=== PATIENT | male | born 1965 | race Caucasian/White ===

== ENCOUNTER 2020-04-06 13:51 | Inpatient (IN) | payer OTHER ==
[~2020-04-06] VITALS: Ht 185.4 cm; Wt 128.7 kg
[2020-04-06] MEDS ORDERED: ONDANSETRON HCL 4 MG/2 ML VIAL IVP ONE (14:30)
[2020-04-06] MEDS ORDERED: SODIUM CHLORIDE 0.9% 1,000 ML IV ONE (14:30)
[2020-04-06 14:40] LABS: COVID AG,FIA SOURCE NASOPHARYNGEAL
[2020-04-06 14:51] LABS: BASOPHILS % (AUTO) 0.3 % (0.0-2.0); EOSINOPHILS % (AUTO) 0 % (1.0-6.0); HEMATOCRIT 44.9 % (41-53); HEMOGLOBIN 15.2 g/dL (13.5-17.5); LYMPHOCYTES # (AUTO) 1.2 K/uL (1.0-4.8); LYMPHOCYTES % (AUTO) 11.3 % (22.0-44.0); MEAN CORPUSCULAR HEMOGLOBIN 29.7 pg (26.0-34.0); MEAN CORPUSCULAR HGB CONC 33.8 G/dL (31.0-37.0); MEAN CORPUSCULAR VOLUME 88 fL (80-100); MONOCYTES # (AUTO) 0.5 K/uL (0.1-1.0); MONOCYTES % (AUTO) 4.8 % (2.0-9.0); NEUTROPHILS # (AUTO) 8.7 K/uL (1.8-7.7); NEUTROPHILS % (AUTO) 83.6 % (40.0-70.0); PLATELET COUNT (AUTO) 327 K/uL (150-450); RED BLOOD CELL COUNT(AUTO) 5.11 MIL/uL (4.50-5.90); RED CELL DISTRIBUTION WIDTH 13.7 % (11.5-14.5)
[2020-04-06 15:10] LABS: ANION GAP 9 mmol/L (8-16); CARBON DIOXIDE 27 mmol/L (22-29); CHLORIDE 103 mmol/L (98-107); CREATININE 1.22 mg/dL (0.60-1.30); GLUCOSE,RANDOM 237 mg/dL (70-110); POTASSIUM 3.2 mmol/L (3.5-5.1); SODIUM SERUM 139 mmol/L (136-145); UREA NITROGEN, BLOOD 18 mg/dL (7-18)
[2020-04-06 15:11] LABS: CALCIUM, TOTAL 9.7 mg/dL (8.8-10.5); GLOMERULAR FILTR. RATE CALC > 60 mL/min (>60)
[2020-04-06 15:16] LABS: ALANINE AMINOTRANSFERASE 35 U/L (12-78); ALKALINE PHOSPHATASE 88 U/L (46-116); ASPARTATE AMINOTRANSFERASE 19 U/L (15-37); BILIRUBIN,TOTAL 0.5 mg/dL (0.1-1.0); TOTAL PROTEIN, SERUM 8.4 g/dL (6.4-8.2)
[2020-04-06] MEDS ORDERED: CloNIDine 0.1 MG/24 HOUR PATCH TD ONE (15:45)
[2020-04-06] MEDS ORDERED: POTASSIUM CHLORIDE 20 MEQ ER TABLET PO ONE (15:45)
[2020-04-06 16:23] VITALS: BP 167/127
[2020-04-06] MEDS ORDERED: LORazepam 2 MG/ML VIAL IVP PRN (16:30)
[2020-04-06] MEDS ORDERED: MAG HYDROX/AL HYDROX/SIMETH ES 30 ML SUSPENSION UDCUP PO PRN (16:30)
[2020-04-06] MEDS ORDERED: PETROLATUM,WHITE 28 GM JELLY TP PRN (16:30)
[2020-04-06] MEDS ORDERED: LOPERAMIDE HCL 2 MG CAPSULE PO PRN ×2 (16:30)
[2020-04-06] MEDS ORDERED: ACETAMINOPHEN/CODEINE 300-15 MG TABLET PO PRN (16:30)
[2020-04-06] MEDS ORDERED: METOCLOPRAMIDE HCL 5 MG/ML 2 ML VIAL IVP PRN (16:30)
[2020-04-06] MEDS ORDERED: DICYCLOMINE HCL 10 MG CAPSULE PO PRN (16:30)
[2020-04-06] MEDS ORDERED: ALBUTEROL SULFATE HFA 90 MCG/PUFF 8 GM INHALER IH PRN (16:30)
[2020-04-06] MEDS ORDERED: IBUPROFEN 400 MG TABLET PO PRN (16:30)
[2020-04-06] MEDS ORDERED: MAGNESIUM HYDROXIDE SUSPENSION 30 ML UDCUP PO PRN (16:30)
[2020-04-06] MEDS ORDERED: GuaiFENesin/D-METHORPHAN [SUGAR-FREE] 200-20MG/10 ML SYRUP UDCUP PO PRN (16:30)
[2020-04-06] MEDS ORDERED: NICOTINE 14 MG/24 HOUR PATCH TD PRN (16:30)
[2020-04-06] MEDS ORDERED: DOCUSATE SODIUM 100 MG CAPSULE PO PRN (16:30)
[2020-04-06] MEDS ORDERED: POTASSIUM CHLORIDE 20 MEQ ER TABLET PO PRN (17:15)
[2020-04-06] MEDS ORDERED: POTASSIUM CHL 10 MEQ/WATER 50 ML IV PRN (17:15)
[2020-04-06] MEDS ORDERED: DEXTROSE 50%-WATER 25 GM/50 ML SYRINGE IVP PRN (17:15)
[2020-04-06] MEDS ORDERED: INFLUENZA VIRUS VACCINE QVS 2020-21 (6MO+)/PF 60 MCG/0.5 ML SYRINGE IM ONE (17:30)
[2020-04-06] MEDS ORDERED: PNEUMOCOCCAL VACCINE POLYVALENT 0.5 ML VIAL [PPSV23] IM ONE (17:30)
[2020-04-06 20:00] VITALS: BP 161/76
[2020-04-06 20:26] LABS: GLUCOMETER DEV NAME(LOC) 6S.1; GLUCOSE,POINT OF CARE 108 MG/DL (70-110)
[2020-04-06] MEDS: TEMAZEPAM 15 MG CAPSULE PO SCH (22:53)
[2020-04-06 23:50] VITALS: BP 157/78
[2020-04-07] MEDS: ONDANSETRON HCL 4 MG TABLET PO PRN ×2 (02:24→11:21)
[2020-04-07] MEDS: INSULIN LISPRO 100 UNITS/ML SQ PRN ×3 (02:27→20:32)
[2020-04-07 05:20] VITALS: BP 164/78
[2020-04-07 06:05] LABS: GLUCOMETER DEV NAME(LOC) 6S.1; GLUCOSE,POINT OF CARE 176 MG/DL (70-110)
[2020-04-07 06:49] LABS: GLUCOMETER DEV NAME(LOC) 6S.1; GLUCOSE,POINT OF CARE 153 MG/DL (70-110)
[2020-04-07 08:00] VITALS: BP 172/75
[2020-04-07] MEDS ORDERED: AmLODIPine BESYLATE 5 MG TABLET PO SCH (09:00)
[2020-04-07] MEDS ORDERED: CloNIDine HCL 0.1 MG TABLET PO PRN (11:00)
[2020-04-07] MEDS: SODIUM CHLORIDE 0.9% 1,000 ML IV SCH (11:21)
[2020-04-07 11:42] LABS: GLUCOMETER DEV NAME(LOC) 6N.2; GLUCOSE,POINT OF CARE 171 MG/DL (70-110)
[2020-04-07] MEDS: CloNIDine HCL 0.1 MG TABLET PO PRN (15:55)
[2020-04-07] MEDS: HEPARIN SODIUM,PORCINE 5,000 UNITS/ML VIAL SQ SCH ×2 (15:55→23:36)
[2020-04-07 16:12] VITALS: BP 155/64
[2020-04-07 19:26] LABS: GLUCOMETER DEV NAME(LOC) 6S.1; GLUCOSE,POINT OF CARE 147 MG/DL (70-110)
[2020-04-07 19:30] VITALS: BP 155/60
[2020-04-07] MEDS: TEMAZEPAM 15 MG CAPSULE PO SCH (20:29)
[2020-04-08] VITALS (7 sets, daily range): BP systolic 132–196; BP diastolic 68–90
[2020-04-08] MEDS: SODIUM CHLORIDE 0.9% 1,000 ML IV SCH ×2 (00:45→15:52)
[2020-04-08] MEDS: ACETAMINOPHEN 325 MG TABLET PO PRN ×2 (05:22→20:15)
[2020-04-08] MEDS: INSULIN LISPRO 100 UNITS/ML SQ PRN (07:04)
[2020-04-08 07:50] LABS: AMPHET/METH SCREEN,URINE NEGATIVE (NEGATIVE); BARBITURATE SCREEN, URINE NEGATIVE (NEGATIVE); BENZODIAZEPINES SCREEN,URINE NEGATIVE (NEGATIVE); CANNABINOID SCREEN,URINE NEGATIVE (NEGATIVE); COCAINE SCREEN,URINE NEGATIVE (NEGATIVE); METHADONE SCREEN, URINE NEGATIVE (NEGATIVE); OPIATE SCREEN,URINE POSITIVE (NEGATIVE)
[2020-04-08] MEDS: AmLODIPine BESYLATE 10 MG TABLET PO SCH (08:00)
[2020-04-08] MEDS: CloNIDine HCL 0.1 MG TABLET PO PRN (08:00)
[2020-04-08] MEDS: HEPARIN SODIUM,PORCINE 5,000 UNITS/ML VIAL SQ SCH ×3 (08:00→23:01)
[2020-04-08 08:06] LABS: APPEARANCE,URINE CLEAR (CLEAR); BILIRUBIN,URINE NEGATIVE (NEGATIVE); GLUCOSE, URINE (UA) NEGATIVE (NEGATIVE); KETONES,URINE 40 mg/dL (NEGATIVE); LEUKOCYTE ESTERASE ,URINE NEGATIVE (NEGATIVE); NITRATE,URINE NEGATIVE (NEGATIVE); OCCULT BLOOD,URINE NEGATIVE (NEGATIVE); PROTEIN,URINE NEGATIVE (NEGATIVE); UROBILINOGEN,URINE 0.2 mg/dL (<=1.0)
[2020-04-08 08:08] LABS: PHENCYCLIDINE SCREEN,URINE NEGATIVE (NEGATIVE)
[2020-04-08 14:52] LABS: GLUCOMETER DEV NAME(LOC) 6N.2; GLUCOSE,POINT OF CARE 125 MG/DL (70-110)
[2020-04-08 14:52] LABS: GLUCOMETER DEV NAME(LOC) 6S.1; GLUCOSE,POINT OF CARE 161 MG/DL (70-110)
[2020-04-08 14:52] LABS: GLUCOMETER DEV NAME(LOC) 6S.1; GLUCOSE,POINT OF CARE 154 MG/DL (70-110)
[2020-04-08 18:20] LABS: GLUCOMETER DEV NAME(LOC) 6S.1; GLUCOSE,POINT OF CARE 117 MG/DL (70-110)
[2020-04-08] MEDS: TEMAZEPAM 15 MG CAPSULE PO SCH (20:15)
[2020-04-09 01:59] LABS: GLUCOMETER DEV NAME(LOC) 6N.2; GLUCOSE,POINT OF CARE 131 MG/DL (70-110)
[2020-04-09 05:34] VITALS: BP 158/98
[2020-04-09] MEDS: SODIUM CHLORIDE 0.9% 1,000 ML IV SCH (05:54)
[2020-04-09 06:15] LABS: BASOPHILS % (AUTO) 0.4 % (0.0-2.0); EOSINOPHILS % (AUTO) 0.3 % (1.0-6.0); HEMATOCRIT 45.7 % (41-53); HEMOGLOBIN 15.9 g/dL (13.5-17.5); LYMPHOCYTES # (AUTO) 1.8 K/uL (1.0-4.8); LYMPHOCYTES % (AUTO) 17.4 % (22.0-44.0); MEAN CORPUSCULAR HEMOGLOBIN 30.5 pg (26.0-34.0); MEAN CORPUSCULAR HGB CONC 34.8 G/dL (31.0-37.0); MEAN CORPUSCULAR VOLUME 88 fL (80-100); MONOCYTES # (AUTO) 1.2 K/uL (0.1-1.0); MONOCYTES % (AUTO) 11.1 % (2.0-9.0); NEUTROPHILS # (AUTO) 7.3 K/uL (1.8-7.7); NEUTROPHILS % (AUTO) 70.8 % (40.0-70.0); PLATELET COUNT (AUTO) 323 K/uL (150-450); RED BLOOD CELL COUNT(AUTO) 5.21 MIL/uL (4.50-5.90); RED CELL DISTRIBUTION WIDTH 13.7 % (11.5-14.5)
[2020-04-09] MEDS: INSULIN LISPRO 100 UNITS/ML SQ PRN (06:35)
[2020-04-09 06:42] LABS: GLUCOMETER DEV NAME(LOC) 6S.1; GLUCOSE,POINT OF CARE 150 MG/DL (70-110)
[2020-04-09 06:53] LABS: ANION GAP 9 mmol/L (8-16); CALCIUM, TOTAL 9.3 mg/dL (8.8-10.5); CARBON DIOXIDE 30 mmol/L (22-29); CHLORIDE 104 mmol/L (98-107); CREATININE 1.04 mg/dL (0.60-1.30); GLOMERULAR FILTR. RATE CALC > 60 mL/min (>60); GLUCOSE,RANDOM 132 mg/dL (70-110); POTASSIUM 3.5 mmol/L (3.5-5.1); SODIUM SERUM 143 mmol/L (136-145); UREA NITROGEN, BLOOD 18 mg/dL (7-18)
[2020-04-09 08:04] VITALS: BP 121/64
[2020-04-09] MEDS: AmLODIPine BESYLATE 10 MG TABLET PO SCH (08:24)
[2020-04-09] MEDS: HEPARIN SODIUM,PORCINE 5,000 UNITS/ML VIAL SQ SCH (08:24)
[2020-04-09] MEDS ORDERED: AMLO10TA55 PO (10:56)
[2020-04-09] MEDS ORDERED: ACET-784 PO (10:58)
[2020-04-09] MEDS ORDERED: ALBU8HFA IH (11:00)
[2020-04-09] MEDS ORDERED: DOCU-275 PO (11:00)
[2020-04-09] MEDS ORDERED: INSU100V SQ (11:02)
[2020-04-09] MEDS ORDERED: LOPE2 PO (11:03)
[2020-04-09] MEDS ORDERED: MAG-136 PO (11:04)
[2020-04-09] MEDS ORDERED: MOM30 PO (11:07)
[2020-04-09] MEDS ORDERED: NICO-703 TD (11:07)
[2020-04-09 12:38] LABS: GLUCOMETER DEV NAME(LOC) 6S.1; GLUCOSE,POINT OF CARE 122 MG/DL (70-110)
== END 2020-04-09 13:10 | DRG 897 ==
LOC: EMS 14:00 → 6S 15:52
PROVIDERS: ADMIT Internal Medicine; ATTEND Internal Medicine
DX: F11.23 Opioid dependence with withdrawal (principal); E78.5 Hyperlipidemia, unspecified; E87.6 Hypokalemia; E11.65 Type 2 diabetes mellitus with hyperglycemia; I10 Essential (primary) hypertension; E66.01 Morbid (severe) obesity due to excess calories; Z68.37 Body mass index [BMI] 37.0-37.9, adult; F17.200 Nicotine dependence, unspecified, uncomplicated; E78.00 Pure hypercholesterolemia, unspecified; F19.10 Other psychoactive substance abuse, uncomplicated; Z20.828 Contact with and (suspected) exposure to other viral communicable diseases; Z28.21 Immunization not carried out because of patient refusal
CPT/HCPCS: 83036; 84132; 87426; 93005; G0480; J1644; J2060; J2405; J2765; J7030; Q0162